=== PATIENT | male | born 1960 ===

== ENCOUNTER 2018-09-16 18:18 | Inpatient (IN) | payer MEDICARE ==
[2018-09-16 19:56] VITALS: O2SAT 95
[2018-09-16 20:26] LABS: ALB/GLOB RATIO 1.2 (1.0-2.1); ALBUMIN 4.6 g/dL (3.5-5.0); ALT/SGPT 80 U/L (21-72); AST/SGOT 54 U/L (17-59); BLOOD UREA NITROGEN 12 mg/dl (9-20); CALCIUM 9.8 mg/dL (8.4-10.2); GFR NON-AFRICAN AMERICAN > 60
[2018-09-16 20:27] LABS: ACETAMINOPHEN < 10.0 ug/ml (10.0-30.0); SALICYLATE < 1.0 mg/dl
[2018-09-16 20:31] LABS: BASO % 0.6 % (0.0-2.0); EOS % 0.3 % (0.0-4.0); HEMOGLOBIN 14.5 g/dL (12.0-18.0); LYMPH % 23.2 % (20.0-40.0); MEAN CELL VOLUME 101.5 fl (80.0-94.0); MEAN CORPUSCULAR HEMOGLOBIN 34.5 pg (27.0-31.0); MEAN PLATELET VOLUME 8.7 fl (7.2-11.7); MONO # 0.7 K/uL (0.0-0.8); MONO % 7.8 % (0.0-10.0); NEUT # 5.7 K/uL (1.8-7.0); NEUT % 68.1 % (50.0-75.0); NRBC % 0.1 % (0.0-0.0); RBC 4.19 Mil/uL (4.40-5.90); RED CELL DISTRIBUTION WIDTH 13.1 % (11.5-14.5); WHITE BLOOD COUNT 8.4 K/uL (4.8-10.8)
[2018-09-16 20:55] LABS: T3 1.25 nmol/L (1.49-2.60)
--- NOTE | 2018-09-16 21:53 | ED PDOC ---
HPI: Psych/Substance Abuse Time Seen by Provider: 09/16/18 18:33 Chief Complaint (Nursing): Palpitations Chief Complaint (Provider): Palpitations History Per: Patient History/Exam Limitations: no limitations Onset/Duration Of Symptoms: Days Current Symptoms Are (Timing): Still Present Associated Symptoms: Suicidal Thoughts. denies: Suicidal Plan Additional Complaint(s): Iggy Wilcox is a 57 year old male with a past medical history of d epression who was brought to the ED by for evaluation of suicidal ideation and depression onset 7 months ago. states that patient has been severely anxious and hasnt left the house in 7 months. Patient also adds that he has had a headache for the last 4 months and now reports suicidal ideation with no plan. He denies any homicidal ideation, auditory or visual hallucinations. Of note, patient is compliant with medications but has not seen a regular doctor in years. PMD: none Past Medical History Reviewed: Historical Data, Nursing Documentation, Vital Signs Vital Signs: Last Vital Signs Temp 98.6 F 09/16/18 18:25 Pulse 89 09/16/18 19:55 Resp 18 09/16/18 19:55 BP 132/87 09/16/18 19:55 Pulse Ox 95 09/16/18 19:55 - Medical History PMH: Anxiety, Depression - Surgical History Other surgeries: legs: right leg trauma left leg childhood illness - Family History Family History: States: Unknown Family Hx - Social History Current smoker - smoking cessation education provided: No Alcohol: None Drugs: Denies - Home Medications Home Medications: Ambulatory Orders Medication Instructions Recorded Cephalexin [cephalexin] 500 mg PO Q6 #28 cap 01/29/17 Hydrocodone/Acetaminophen [Vicodin 1 each PO Q6 #30 tablet 01/29/17 Es 7.5-300 mg Tablet] - Allergies Allergies/Adverse Reactions: Allergies Allergy/AdvReac Type Severity Reaction Status Date / Time No Known Allergies Allergy Unverified 01/29/17 15:29 Review of Systems ROS Statement: Except As Marked, All Systems Reviewed And Found Negative Neurological: Positive for: Headache Psych: Positive for: Depression, Suicidal ideation. Negative for: Other (homicidal ideation, hallucinations) Physical Exam - Reviewed Nursing Documentation Reviewed: Yes Vital Signs Reviewed: Yes - Physical Exam Appears: Positive for: No Acute Distress (tired appearing ) Head Exam: Positive for: ATRAUMATIC, NORMOCEPHALIC Skin: Positive for: Warm, Dry Eye Exam: Positive for: EOMI, PERRL ENT: Negative for: Pharyngeal Erythema, Tonsillar Exudate Neck: Positive for: Painless ROM, Supple Cardiovascular/Chest: Positive for: Regular Rate, Rhythm, Chest Non Tender. Negative for: Murmur Respiratory: Positive for: Normal Breath Sounds. Negative for: Respiratory Distress Gastrointestinal/Abdominal: Positive for: Soft. Negative for: Tenderness Back: Negative for: Decreased ROM Extremity: Positive for: Normal ROM. Negative for: Deformity Lymphatic: Negative for: Adenopathy Neurologic/Psych: Positive for: Alert, Oriented, Mood/Affect (depressed). Negative for: Motor/Sensory Deficits - Laboratory Results Result Diagrams: 09/16/18 20:00 09/16/18 20:00 - ECG ECG Rhythm: Positive for: Normal QRS, Sinus Rhythm. Negative for: Normal ST Segment (T wave inversion in lateral leads) Rate: 95 O2 Sat by Pulse Oximetry: 95 (RA) Medical Decision Making Medical Decision Making: Time: 20:00 Impression: Headache and Depression Plan: --CT Head --EKG --Acetaminophen --Alcohol Serum --CMP --Drug Screen --Free T4 --Magnesium --Phosphorous --Salicylate --T3 --TSH --Crisis Evaluation --ED Urine Dipstick --CBC --Chest x-ray --Valium 5 mg PO Chest Xray showed no acute findings. Labs were unremarkable. CT Head: IMPRESSION: No acute intracranial abnormality. Patient is medically stable for psychiatric evaluation and admission if necessary. 23:00 --Patient signed out to Dr. Huang pending crisis evaluation and final d isposition. Scribe Attestation: Documented by, Renu Meehan acting as a scribe for Daniella Cheng MD. Provider Scribe Attestation: All medical record entries made by the Scribe were at my direction and personally dictated by me. I have reviewed the chart and agree that the record accurately reflects my personal performance of the history, physical exam, medical decision making, and the department course for this patient. I have also personally directed, reviewed, and agree with the discharge instructions and disposition. Disposition - Clinical Impression Clinical Impression: Palpitations - Patient ED Disposition Is Patient to be Admitted: Transfer of Care - Disposition Disposition: Transfer of Care Disposition Time: 23:00 Condition: STABLE Patient Signed Over To: Wang Huang
--- NOTE | 2018-09-16 23:21 | ED PDOC ---
- Laboratory Results Result Diagrams: 09/16/18 20:00 09/16/18 20:00 - ECG O2 Sat by Pulse Oximetry: 95 (RA) Pulse Ox Interpretation: Normal Medical Decision Making Medical Decision Makin:00 --Care endorsed to this provider pending crisis evaluation, reassessment and final disposition. 23:32 --Patient will be admitted to the hospital. Diagnoses are depression and anxiety as per Dr. Ortiz. Scribe Attestation: Documented by July Lora acting as a scribe for Wang Huang MD Provider Scribe Attestation: All medical record entries made by the Scribe were at my direction and personally dictated by me. I have reviewed the chart and agree that the record accurately reflects my personal performance of the history, physical exam, medical decision making, and the department course for this patient. I have also personally directed, reviewed, and agree with the discharge instructions and disposition. Disposition Counseled Patient/Family Regarding: Studies Performed - Clinical Impression Clinical Impression: Palpitations - POA Present On Arrival: None - Disposition Disposition: Admitted as In-Patient Disposition Time: 01:00 Condition: STABLE
[2018-09-17 01:21] LABS: URINE BILIRUBIN NEGATIVE (NEGATIVE); URINE BLOOD NEGATIVE (NEGATIVE); URINE CLARITY SLIGHTY-CLOUDY (Clear); URINE COLOR YELLOW (YELLOW); URINE GLUCOSE (UA) NEG (Normal); URINE LEUKOCYTE ESTERASE NEG Leu/uL (Negative); URINE PROTEIN NEGATIVE (NEGATIVE); URINE UROBILINOGEN 0.2-1.0 mg/dL (0.2-1.0)
[2018-09-17] MEDS ORDERED: Alum-Mag Hydrox-Simethicone Susp (30 mL) PO PRN (01:27)
[2018-09-17] MEDS ORDERED: DiphenhydrAMINE 50 mg/ml Inj IM PRN (01:27)
[2018-09-17] MEDS ORDERED: Magnesium Hydroxide Susp 30 ml UD PO PRN (01:27)
[2018-09-17 01:34] LABS: BARBITURATES, UR NEGATIVE (NEGATIVE); BENZODIAZEPINES, UR NEGATIVE (NEGATIVE); OPIATES, UR NEGATIVE (NEGATIVE); PHENCYCLIDINE, UR NEGATIVE (NEGATIVE)
--- NOTE | 2018-09-17 01:38 | PCM.BM ---
<Michael Whelan P - Last Filed: 09/17/18 01:36> Treatment Plan Problems - Problems identified on initial assessmt Anxiety Date Initiated: 09/17/18 Time Initiated: 01:37 Assessment reference: NA Status: Active Altered Sleep Patterns Date Initiated: 09/17/18 Time Initiated: 01:37 Assessment reference: NA Status: Active Medication nonadherence Date Initiated: 09/17/18 Time Initiated: 01:37 Assessment reference: NA Status: Active Treatment assets and liabiliti Patient Assests: cooperative, ADL independent, physically healthy, good support system, negotiates basic needs, cognitively intact Patient Liabilities: language/speech - Milieu Protocol Maintain good personal hygiene: daily Encourage regular showers, daily Remind patient to perform daily oral care, daily Assist patient to perform ADL's Conduct patient checks and document Observation sheet: Q15 minutes Maintain personal safety: every shift Educate patient to report safety concerns to staff, every shift Monitor environment for contraband/sharps Medication safety: Monitor for expected outcome, potential side effects: every shift, Assess barriers to learning: every shift, Assess readiness for medication education: every shift <Wade Humphrey J - Last Filed: 09/18/18 15:20> Family Contact Family involvement: Family/SO is involved Family contact: Patient agrees to contact, Family has been contacted by patient, Telephone contact initiated by staff Family contact name: Sherin - Family contacted how many times per week?: 2 Family contact comment: [employer] spoke with pt's Sherin ([phone]) to give updates on pt's care and to explain the current medications of Prozac, Trazodone and Neurontin. Pt's provided principal technical writer with pt's psychiatrist information, Dr. Cisco Salguero at [address] [place] [address] . Pt's had concerns with pt being home every day, so PHP, adult day care, and home health aid all discussed. - Outside Agency Agency 1 Care involvment: Following patient during stay, Information-sharing Agency contact name: Dr. Cisco Salguero Agency contact number: [phone] - Goals for Treatment Patient goals for treatment: Pt offered no goals for treatment at this time as he reported that his insomnia, anxiety and depression have all resolved. Discharge/Continuing Care - Education Needs Education Needs: Family Medication, Family Diagnosis/Disease Process, Family Coping Skills, Family Community resources, Family Aftercare Safety Plan, Patient Medication, Patient Diagnosis/Disease Process, Patient Coping Skills, Patient Community resources, Patient Aftercare Safety Plan - Discharge Discharge Criteria: Tolerates medication w/o severe side effects, Normal sleep pattern, Ability to care for self, Reduction of target symptoms Discharge to:: Home, With Family - Treatment Team Participation Patient/Family/SO Statement: 09/18/18 15:22 Pt met with treatment team on 09/18/18. As per pt he feels "good, good, good." Pt reported "good" sleep and it was observed that his mood and affect were bright. Pt reported his mood as "very good." Pt denied headache. Prozac increase was discussed and Neurontin and Trazodone were also discussed. Pt could not remember his former provider, but reported he had not been connected to services for about 7 months. Pt denied SI/HI and AVT hallucinations. Discussed with Family/SO: Yes Was Patient/Family/SO present at Treatment Team Meeting: Yes <Salinas Winter - Last Filed: 09/21/18 09:45> - Diagnosis (1) Depression Status: Acute Interventions: psychotherapy, pharmacotherapy 09/21/18 09:45
[2018-09-17 08:33] LABS: T4 7.64 ug/dl (5.5-11.0)
--- NOTE | 2018-09-17 09:24 | CT ---
Date of service: 09/16/2018 PROCEDURE: CT HEAD WITHOUT CONTRAST. HISTORY: headache COMPARISON: None available. TECHNIQUE: Axial computed tomography images were obtained through the head/brain without intravenous contrast. Radiation dose: Total exam DLP = 863.06 mGy-cm. This CT exam was performed using one or more of the following dose reduction techniques: Automated exposure control, adjustment of the mA and/or kV according to patient size, and/or use of iterative reconstruction technique. FINDINGS: HEMORRHAGE: No intracranial hemorrhage. BRAIN: No mass effect or edema. No atrophy or chronic microvascular ischemic changes. VENTRICLES: Unremarkable. No hydrocephalus. CALVARIUM: Unremarkable. PARANASAL SINUSES: Unremarkable as visualized. No significant inflammatory changes. MASTOID AIR CELLS: Unremarkable as visualized. No inflammatory changes. OTHER FINDINGS: None. IMPRESSION: Normal CT of the Head. No intracranial mass, hemorrhage or evidence of acute infarct. The preliminary findings for this examination were reported by [facility] at 7:47 p.m. on 09/16/2018. There is concurrence of this report with the preliminary findings.
--- NOTE | 2018-09-17 10:19 | RAD ---
HISTORY: Palpitations COMPARISON: No prior. TECHNIQUE: Chest PA and lateral FINDINGS: LINES AND TUBES: None. LUNG AND PLEURA: The lungs are well inflated and clear. No pleural effusion or pneumothorax. HEART AND MEDIASTINUM: The heart is not enlarged. No aortic atherosclerotic calcification present. The hilar and mediastinal contours are within normal limits. SKELETAL STRUCTURES: The bony structures are within normal limits for the patient's age. VISUALIZED UPPER ABDOMEN: Normal. OTHER FINDINGS: None. IMPRESSION: No active pulmonary disease.
--- NOTE | 2018-09-17 10:23 | CARD ---
APPROVED REPORT Date of service: 09/16/2018 EKG Measurement Heart [id number] <Conclusion> Normal sinus rhythm ST & T wave abnormality, consider anterolateral ischemia Abnormal ECG
--- NOTE | 2018-09-18 15:20 | PCM.PYCHPN ---
Psychiatric Progress Note - Psychiatric Progress Note Patient seen today, length of contact: pt evaluated discussed with team chart reviewed Patient Chief Complaint: I slept better but still anxious Problems Identified/Issues Discussed: pt evaluated , with treatment team, reported improved sleep continues to present with anxious mood and affect, CBT provided , discussed increasing dose of prozac gradually, encouraged pt tp attend groups, pt denied perceptual disturbances , no reporte side effects of medictions, denied suicidal or homicidal ideation Medical Problems: no hx of previous hospitalizations DSM 5 Symptoms Update: depression generalized anxiety disorder Medication Change: Yes (increase prozac) Medical Record Reviewed: Yes Mental Status Examination - Cognitive Function Orientation: Person, Place, Situation Attention: WNL Concentration: Poor Association: WNL Fund of Knowledge: Poor Decription of patient's judgement and insights: partial insight fair judgment - Mood Mood: Depressed, Anxious - Affect Affect: Constricted, Depressed - Speech Speech: Soft - Formal Thought Process Formal Thought Process: Circumstantial Psychotic Thoughts and Behaviors: pt denied psychotic symptoms, non elicited - Suicidal Ideation Suicidal Ideation: No - Homicidal Ideation Homicidal Ideation: No Goal/Treatment Plan - Goal/Treatment Plan Need for Continued Stay: Severe depression anxiety, Discharge may exacerbated symptoms Progress Toward Problem(s) and Goals/Treatment Plan: increase prozac 30mg neurontin 100mg tid Trazodone 100mg qhs CBT group and supportive therapy
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
[2018-09-18] MEDS: Multivitamin Vitamin B Complex (Nephro-Vite) Tab PO SCH (17:13)
--- NOTE | 2018-09-19 08:29 | PCM.PYCHPN ---
Psychiatric Progress Note - Psychiatric Progress Note Patient seen today, length of contact: pt evaluated discussed with team chart reviewed Patient Chief Complaint: pt has been still anxious and not able to sleep last night.pt has a lot of somatic complaints c/o ringing in the rt ear and still preoccupied with fear of panic attacks.pt denies suicidal thoughts.no side effects . Medication Change: Yes (increase trazodone) Medical Record Reviewed: Yes Mental Status Examination - Cognitive Function Orientation: Person, Place, Situation Attention: WNL Concentration: Poor Association: WNL Fund of Knowledge: Poor - Mood Mood: Depressed, Anxious - Affect Affect: Constricted, Depressed - Speech Speech: Soft - Formal Thought Process Formal Thought Process: Circumstantial - Suicidal Ideation Suicidal Ideation: No - Homicidal Ideation Homicidal Ideation: No Goal/Treatment Plan - Goal/Treatment Plan Need for Continued Stay: Severe depression anxiety, Discharge may exacerbated symptoms Progress Toward Problem(s) and Goals/Treatment Plan: will continue to stabilize pt with adjusting neurontin and prozac and will increase trazodone for sleep . Disposition as per dr king.
[2018-09-19] MEDS: Multivitamin Vitamin B Complex (Nephro-Vite) Tab PO SCH (08:40)
[2018-09-20] MEDS: Multivitamin Vitamin B Complex (Nephro-Vite) Tab PO SCH (09:01)
[2018-09-21] MEDS: Multivitamin Vitamin B Complex (Nephro-Vite) Tab PO SCH (08:54)
[2018-09-21 09:02] VITALS: BP 148/88; PULSE 92; RESP 20; TEMP 96.8
--- NOTE | 2018-09-21 11:56 | PCM.PYCHDC ---
Mental Status Examination - Mental Status Examination Orientation: Person, Place, Situation Memory: Intact Mood: Neutral Affect: Broad Speech: Appropriate Attention: WNL Concentration: WNL Association: WNL Fund of Knowledge: WNL Formal Thought Process: No Impairment Description of patient's judgement and insight: partial insight fair judgment Psychotic Thoughts and Behaviors: pt denied psychotic symptoms, non elicited Suicidal Ideation: No Current Homicidal Ideation?: No Discharge Summary - Discharge Note Reason for Hospitalization: pt is 57 ys old male with previous diagnosis of anxiety and depression, brought to ER by pt has not been compliant with medications or follow up for past 7 months due to financial difficulties, pt has been increasingly anxious and depressed, poor sleep low energy poor motivation, unable to leave with house with social anxiety and panic disorder , on day of evaluation pt was having suicidal ideation, brought to ER by on unit pt verbalizing passive suicidal ideation without active plan or intent in hospital, denied command hallucinations, denied homicidal ideation denied substance use Consultations:: List each consultation separately and include: 1. Reason for request. 2. Findings. 3. Follow-up Summary of Hospital Course include:: 1. Description of specific treatment plan utilized for patients during their course of treatmen. 2. Summarize the time- course for resolution of acute symptoms and/or regressed behaviors. 3. Describe issues identified and worked on during hospitalization. 4. Describe medication utilized. 5. Describe medical problems identified and treated. 6. Reassessment of suicide risk Summary of Hospital Course: pt on admission was presenting with insomnia, depressed mood and anxious affect pt was started on prozac, it was increased to 30mg pt was also started on trazodone , it was increased to 150mg neurontin for anxiety, pt was compliant with medications, attended group, no reported side effects on discharge , mental status was stable pt denied any current suicidal or homicidal ideation, denied perceptual disturbances, follow up arranged by health care social worker with private psychiatrist - Diagnosis (1) Depression Current Visit: Yes Status: Acute - Final Diagnosis (DSM 5) Condition upon Discharge: STABLE DSM 5: MAJOR DEPRESSION RECURRENT SEVERE GENERALIZED ANXIETY DISORDER Disposition: HOME/ ROUTINE Prescriptions/Medication Reconciliation: FLUoxetine [Prozac] 30 mg PO DAILY 30 Days #90 cap Gabapentin [Neurontin] 100 mg PO TID 30 Days #90 cap traZODone [Desyrel] 150 mg PO HS 30 Days #90 tab Vitamin B Complex/Vit C/Folic [Nephro-Salinas] 1 tab PO DAILY 30 Days #30 tab - Antipsychotic Medications Pt discharged on 2 or more routine antipsychotic medications: No
== END 2018-09-21 15:30 | disposition home or self-care (01) | DRG 885 ==
LOC: H.ER 18:18 → H.ERHOLD 23:25 → H.PSYCH 09-17 01:25
PROVIDERS: ADMIT Psychiatry & Neurology Psychiatry; ATTEND Psychiatry & Neurology Psychiatry
PROC: GZHZZZZ Group Psychotherapy (ICD-10-PCS; principal; 2018-09-17)
PROC: GZ51ZZZ Individual Psychotherapy, Behavioral (ICD-10-PCS; 2018-09-17)
DX: F33.2 Major depressive disorder, recurrent severe without psychotic features (principal); R45.851 Suicidal ideations; F41.1 Generalized anxiety disorder; G47.00 Insomnia, unspecified; Z91.14 Patient's other noncompliance with medication regimen; R00.2 Palpitations